=== PATIENT | female | born 1970 | race Caucasian/White ===

== ENCOUNTER → 2019-11-03 12:09 | Outpatient (BNVA) | payer OTHER, SELFPAY | PROVIDERS: Family Provider Nurse Practitioner; PCP Nurse Practitioner Family; Referring Provider Nurse Practitioner Family; Visit Provider Internal Medicine Rheumatology | DX: M19.90 Unspecified osteoarthritis, unspecified site (principal); Z11.59 Encounter for screening for other viral diseases; Z79.899 Other long term (current) drug therapy; Z11.1 Encounter for screening for respiratory tuberculosis; R79.82 Elevated C-reactive protein (CRP); T69.1XXA Chilblains, initial encounter; Z72.89 Other problems related to lifestyle; X31.XXXA Exposure to excessive natural cold, initial encounter | CPT/HCPCS: 36415; 82306; 84550; 85651; 86140; 86431; 86480; 86704; 86803; 87340; 99204 ==

== ENCOUNTER 2019-11-04 08:16 | Outpatient (CLI) | payer OTHER, SELFPAY ==
--- NOTE | 2019-11-04 08:29 | XR_ITS ---
WS: [id number] RIGHT HAND: 3 VIEW(S) TECHNIQUE: PA, oblique and lateral. HISTORY: inflammatory arthritis COMPARISON: None available. No acute fracture or dislocation. Very minimal narrowing of the interphalangeal joint spaces. No erosions or periarticular osteopenia. No ulnar styloid erosion. XR/XR hand RT min 3V* [id number] IMPRESSION: Minimal osteoarthritis.
--- NOTE | 2019-11-04 08:29 | XR_ITS ---
WS: [id number] RIGHT FOOT: 3 VIEW(S) TECHNIQUE: PA, oblique and lateral. HISTORY: Inflammatory arthritis COMPARISON: 01/06/2016 No acute fracture or dislocation. Mild narrowing of the first metatarsophalangeal joint. Mild deformity of the fourth metatarsal head i s probably from an old healed injury. No erosions. No soft tissue abnormality or bone destruction. XR/XR foot RT min 3V* [id number] IMPRESSION: Mild osteoarthritis. No erosions.
--- NOTE | 2019-11-04 08:29 | XR_ITS ---
WS: [id number] LEFT HAND: 3 VIEW(S) TECHNIQUE: PA, oblique and lateral. HISTORY: inflammatory arthritis COMPARISON: None available. No acute fracture or dislocation. Minimal interphalangeal joint space narrowing. No erosions at the metatarsal heads or ulnar styloid. Mild degenerative changes at the first carpometacarpal joint. XR/XR hand LT min 3V* [id number] IMPRESSION: Mild osteoarthritis.
--- NOTE | 2019-11-04 08:29 | XR_ITS ---
WS: [id number] LEFT FOOT: 3 VIEW(S) TECHNIQUE: PA, oblique and lateral. HISTORY: inflammatory arthritis COMPARISON: None available. No acute fracture or dislocation. Normal tarsal/metatarsal alignment. Mild narrowing of the first metatarsophalangeal joint. No erosions at the metatarsal heads. XR/XR foot LT min 3V* [id number] IMPRESSION: Mild osteoarthritis first metatarsophalangeal joint.
== END 2019-11-04 08:17 | disposition home or self-care (01) ==
PROVIDERS: Family Provider Nurse Practitioner; PCP Nurse Practitioner Family; Visit Provider Internal Medicine Rheumatology
DX: M19.042 Primary osteoarthritis, left hand (principal); M19.041 Primary osteoarthritis, right hand; M19.072 Primary osteoarthritis, left ankle and foot; M19.071 Primary osteoarthritis, right ankle and foot
CPT/HCPCS: 73130; 73630

== ENCOUNTER → 2019-11-21 14:03 | Outpatient (BNVA) | payer OTHER, SELFPAY | PROVIDERS: Family Provider Nurse Practitioner; PCP Nurse Practitioner Family; Visit Provider Internal Medicine Rheumatology | DX: M06.4 Inflammatory polyarthropathy (principal); Z79.899 Other long term (current) drug therapy; R05 Cough | CPT/HCPCS: 99214 ==

== ENCOUNTER 2019-11-22 08:33 | Outpatient (CLI) | payer OTHER, SELFPAY ==
--- NOTE | 2019-11-22 08:45 | XR_ITS ---
WS: [id number] PROCEDURE: XR chest 2V* [id number] CLINICAL INFORMATION: cough COMPARISON: January 06, 2016 FINDINGS: Heart: Normal cardiac silhouette. Lungs: Lungs are clear. No consolidation or pleural fluid. Bones: Mild thoracic curve convex right. XR/XR chest 2V* [id number] IMPRESSION: Normal chest
== END 2019-11-22 08:34 | disposition home or self-care (01) ==
LOC: RADWPI 08:35
PROVIDERS: Family Provider Nurse Practitioner; PCP Nurse Practitioner Family; Visit Provider Internal Medicine Rheumatology
DX: R05 Cough (principal)
CPT/HCPCS: 71046

== ENCOUNTER → 2020-02-17 09:07 | Outpatient (BNVA) | payer OTHER, SELFPAY | PROVIDERS: Family Provider Nurse Practitioner; PCP Nurse Practitioner Family; Visit Provider Internal Medicine Rheumatology | DX: R05 Cough (principal); Z79.899 Other long term (current) drug therapy | CPT/HCPCS: 36415; 80076; 82565; 85025; 85651; 86140 ==

== ENCOUNTER → 2020-02-22 08:51 | Outpatient (BNVA) | payer OTHER, SELFPAY | PROVIDERS: Family Provider Nurse Practitioner; PCP Nurse Practitioner Family; Visit Provider Internal Medicine Rheumatology | DX: M06.4 Inflammatory polyarthropathy (principal); Z79.899 Other long term (current) drug therapy; M19.90 Unspecified osteoarthritis, unspecified site; M25.50 Pain in unspecified joint; R79.82 Elevated C-reactive protein (CRP); T69.1XXD Chilblains, subsequent encounter; X31.XXXD Exposure to excessive natural cold, subsequent encounter | CPT/HCPCS: 99214 ==

== ENCOUNTER → 2020-04-23 09:03 | Outpatient (BNVA) | payer OTHER, SELFPAY | PROVIDERS: Family Provider Nurse Practitioner; PCP Nurse Practitioner Family | DX: Z79.899 Other long term (current) drug therapy (principal) | CPT/HCPCS: 36415; 82565; 85025; 85651; 86140 ==

== ENCOUNTER 2020-06-09 16:03 | Emergency (ER) | payer OTHER, SELFPAY ==
[2020-06-09 16:15] VITALS: BP 145/91; PULSE 98; RESP 18; TEMP 37.1; O2SAT 97
--- NOTE | 2020-06-09 18:44 | CTR_ITS ---
PROCEDURE INFORMATION: Exam: CT Abdomen And Pelvis With Contrast Exam date and time: 06/09/2020 6:54 PM Age: 49 years old Clinical indication: Abdominal pain; Localized; Right; Prior surgery; Surgery date: 6+ months; Surgery type: Gb; Patient HX: C/O R sided abd pain w diarrhea; Additional info: Ruq pain TECHNIQUE: Imaging protocol: Computed tomography of the abdomen and pelvis with intravenous contrast. Sagittal and coronal reformatted images were created and reviewed. Radiation optimization: All CT scans at this facility use at least one of these dose optimization techniques: automated exposure control; mA and/or kV adjustment per patient size (includes targeted exams where dose is matched to clinical indication); or iterative reconstruction. Contrast material: OMNI 300; Contrast volume: 95 ml; Contrast route: INTRAVENOUS (IV); COMPARISON: CR Hip 2-3v LEFT wwo Pelv* [id number] 06/07/2019 1:56 PM RADIATION DOSE METRICS: Total DLP (mGy-cm): 1528.81 FINDINGS: Lungs: Visualized lungs are clear. Pleural space: No pleural effusion. Heart: Visualized portions of the heart are unremarkable. Liver: Diffuse, mildly decreased attenuation in the liver. Findings are consistent with mild fatty infiltration. Gallbladder and bile ducts: Patient has had a previous cholecystectomy. No biliary ductal dilatation. Pancreas: The pancreas is unremarkable. No pancreatic ductal dilatation. Spleen: The spleen is unremarkable. Adrenals: The right and left adrenal glands are unremarkable. Kidneys and ureters: Subcentimeter hypodense focus in the right kidney that is too small to characterize, however likely represents a small cyst. The left kidney is unremarkable. The right and left ureters are unremarkable. Stomach and bowel: There is focal inflammation of the pericolonic fat adjacent to the proximal transverse colon. No colonic wall thickening. Ingested contents in the stomach. No acute abnormality in the small bowel. Appendix: The appendix is visualized and is unremarkable. No evidence of appendicitis. Intraperitoneal space: No free intraperitoneal air. No ascites. No loculated fluid collections to suggest an abscess. See also under stomach and bowel . Vasculature: No evidence for aortic aneurysm or aortic dissection. Hepatic veins, portal veins, splenic vein, and SMV are patent. Lymph nodes: No lymphadenopathy. Urinary bladder: Unremarkable as visualized. Reproductive: Patient has had a previous hysterectomy. The right ovary is not visualized, the patient may have had a previous right oophorectomy. Dominant follicle in the left ovary 2.5 x 2.8 cm (series 2, image 73). Bones/joints: Mild degenerative changes at both the right and left hips. [id number] multilevel degenerative changes in the visualized spine. Mild spinal canal stenosis at L4-L5 and L5-S1. Multilevel foraminal stenosis of varying severity in the lumbar spine. Soft tissues: The extra-abdominal soft tissues are unremarkable. Moderate-sized calcified enthesophyte at the left gluteal musculature tendon insertion. No acute abnormality in the extra-abdominal soft tissues. CT/CT abdomen pelvis w con* [id number] IMPRESSION: 1. Findings suggesting epiploic appendagitis versus a focal omental infarct adjacent to the proximal transverse colon. 2. Mild fatty infiltration of the liver. 3. Patient has had a previous hysterectomy. 4. The right ovary is not visualized, the patient may have had a previous right oophorectomy. Recommend clinical correlation. 5. Dominant follicle in the left ovary 2.5 x 2.8 cm. COMMENTS: Consistent with the [employer]'s Incidental Findings Committee white paper (J Am Azar Radiol 2018): Any incidental renal lesion less than 1 cm or classified as too small to characterize, or any incidental cystic renal lesion characterized as simple-appearing, is likely benign. No follow-up imaging is recommended for these lesions per consensus recommendations based on imaging criteria. Radiation Dose CTDIVOL = (mGy): DLP = 1528.81 (mGy-cm)
[2020-06-09 19:26] LABS: Add Urine Microscopic? NO
[2020-06-09 19:29] LABS: Bilirubin Urine Neg (Negative); Blood Urine Neg (Negative); Glucose Urine UA Norm (Normal); Ketones Urine Negative (Negative); Leukocyte Esterase Urine Negative (Negative); Nitrate Urine Negative (Negative); Protein Urine Neg (Negative); Specific Gravity, Urine 1.005 (1.005-1.030); Urine Appearance Clear (CLEAR); Urine Color Yellow (Yellow); Urobilinogen Urine Norm (Negative); pH Urine 6.5 (5-7)
[2020-06-09] MEDS: iohexol 300 mg/mL 100 mL Btl IV (19:35)
[2020-06-09 19:47] LABS: Basophils # 0.1 10^3/uL (0.0-0.1); Basophils % 0.5 %; Eosinophils # 0.2 10^3/uL (0.0-0.8); Eosinophils % 1.4 %; Hematocrit 45.6 % (37.0-47.0); Hemoglobin 15.6 g/dL (11.5-15.3); Lymphocytes # 3.4 10^3/uL (0.8-4.8); Lymphocytes % 24.3 %; Mean Corpuscular HGB Conc 34.2 g/dL (30.0-36.0); Mean Corpuscular Hemoglobin 29.4 pg (28.0-34.0); Mean Platelet Volume 9.6 fL (7.4-10.4); Monocytes % 7.4 %; Neutrophils # 9.21 10^3/uL (1.8-7.7); Nucleated Red Blood Cells % 0 %; Platelet Count 287 10^3/cmm (130-400); Red Cell Distribution Width 11.7 % (12.1-15.1)
[2020-06-09 20:14] LABS: Alanine Aminotransferase 46 U/L (0-33); Albumin Level 4.8 g/dL (3.5-5.2); Alkaline Phosphatase 61 IU/L (35-105); Aspartate Amino Transferase 20 U/L (0-32); Blood Urea Nitrogen 14 mg/dL (6-20); C Reactive Protein 8.4 mg/L (0.0-4.9); Calcium 9.4 mg/dL (8.5-10.5); Carbon Dioxide 31 mmol/L (22-29); Chloride 98 mmol/L (98-107); Globulin 2.3 g/dL (1.3-4.6); Glomerular Filtration Rate 75.6 mL/min (90-130); Glucose 109 mg/dL (65-115); Lactate (Lactic Acid level) 1.9 mmol/L (0.5-2.2); Lipase 68 U/L (13-60); Osmolality Calculated 291 mOsm/kg (285-295); Sodium 140 mmol/L (136-145); Total Bilirubin 0.3 mg/dL (0.15-1.2); Total Protein 7.1 g/dL (6.6-8.7)
--- NOTE | 2020-06-09 20:43 | W.ED.ABDPA2 ---
HPI - Abdominal Pain General: Chief Complaint: Abdominal Pain Stated Complaint: RIGHT SIDE PAIN Time Seen by Provider: 06/09/20 17:59 Source: patient and family Mode of arrival: ambulatory Limitations: no limitations History of Present Illness: HPI narrative: Abdominal pain started today when she woke up. Pain was located in the RUQ, and has progressively gotten worse as the day went on. She denies any fever, nausea or vomiting. She endorses some diarrhea. She denies any sick contacts. She has had her gallbladder removed many years ago. She still has her appendix. MD elicited complaint: abdominal pain Onset (ago): hour(s) Pain Consistency: constant Location: RUQ Severity: moderate Quality: sharp Radiation: none Migration to: no migration Exacerbating factors: eating Relieving factors: nothing Associated Symptoms: Reports change in bowel habits, diarrhea and fever(s); Denies anorexia, belching, bloating, change in stool character, chills, coffee ground emesis, constipation, GI cramping, dyspepsia, dysuria, excessive flatus, heartburn, hematochezia, hematuria, hematemesis, fecal incontinence, loose stools, melena, nausea, poor appetite, syncope and vomiting Review of Systems General: Reports: 10 or more systems reviewed and unremarkable except in HPI and below Const: Reports: fever(s); Denies: chills Eyes: Denies: change in vision or blurry vision ENMT: Denies: throat pain, enlarged tonsils, odynophagia, hoarseness, mouth pain or swelling of lips/tongue Card: Denies: syncope Resp: Denies: dyspnea, productive cough or non-productive cough GI: Reports: abdominal pain, diarrhea and change in bowel habits; Denies: nausea, vomiting, hematemesis, coffee ground emesis, heartburn, constipation, bloating, GI cramping, belching, excessive flatus, fecal incontinence, change in stool character, hematochezia or melena : Denies: dysuria or hematuria Musc: Denies: neck pain, back pain or extremity swelling Skin/Breast: Denies: rash, pruritus or erythema Neuro: Denies: headache(s), numbness in extremities or weakness in extremities Endo: Denies: polyuria, polydipsia or tired all the time PFSH ED PFSH: Medical History Adult hypothyroidism Anxiety Elevated C-reactive protein (CRP) High risk medication use Inflammatory arthritis Joint pain Perniosis Vitamin D deficiency Surgical History History of section 1992,1997,1998 History of cholecystectomy 2016 History of hysterectomy partial 2008 Family History Mother Cancer breast cancer uterine cancer Father Hypertension Denies family history of Rheumatoid arthritis Lupus Social History Smoking and tobacco status: never smoked Second hand smoke exposure: No Smoking risk assessment/counseling performed?: No Alcohol intake: never Desire information about alcohol rehabilitation?: No Counseling given: No Desire information about substance/drug rehabilitation?: No Counseling given: No Adopted: No Caregiver/support person: No Lives independently: Yes Household members: spouse Housing: House Marital status: service: No Current occupational status: employed History of recent travel: No Current gender identity: Female Physical Exam Const: COMMON NORMALS: no acute distress, average body habitus, patient oriented x3, no limitations, healthy appearing, alert and well nourished HENMT: COMMON NORMALS: normocephalic, atraumatic and moist oral mucous membranes HEAD & SCALP: normocephalic and atraumatic Neck/C-Spine: COMMON NORMALS: no meningeal signs and no JVD Resp: COMMON NORMALS: normal respiratory effort, No retractions, No use of accessory muscles, clear to auscultation bilaterally and percussion normal AUSCULTATION: clear to auscultation bilaterally PERCUSSION: percussion normal Cardio: COMMON NORMALS: no JVD, regular rate, regular rhythm, S1 normal heart sound present, S2 normal heart sound present, No gallops present (Cardio), No clicks present (Cardio), No murmurs present (Cardio), No rub (Cardio) and Peripheral pulses 2+ throughout RATE: regular rate RHYTHM: regular rhythm HEART SOUNDS: S1 normal heart sound present and S2 normal heart sound present PERIPHERAL PULSES: Peripheral pulses 2+ throughout GI: COMMON NORMALS: Normal to inspection, nondistended, normoactive bowel sounds present, Soft to palpation, No hepatosplenomegaly present, no masses and no bruits PALPATION: Yes Soft to palpation, Yes Tenderness to palpation present (GI) Details: RUQ, Yes Guarding due to palpation present (GI) in the RUQ and Yes No hepatosplenomegaly present Extremity: COMMON NORMALS: normal to inspection, full ROM, capillary refill normal, no calf tenderness and no pedal edema Neuro: COMMON NORMALS: patient oriented x3 SENSORIUM/ORIENTATION: Yes alert MENINGEAL SIGNS: Yes no meningeal signs Skin: COMMON NORMALS: no rashes or lesions noted, no wounds, turgor normal, no jaundice, no petechiae and no mottling GENERAL SKIN EXAM: no rashes or lesions noted and turgor normal Course Reevaluation(s): Reevaluation #1: Discussed her lab and imaging findings with her. Mild leukocytosis, CT scan findings suggestive of epiploic appendagitis. Explained to her that this is a self-limiting condition and management is just basically analgesics. She is advised to take ibuprofen as needed. She voiced understanding and is in agreement with the plan. She is given a printout from up-to-date on epiploic appendagitis Time: 20:40 Vital Signs: Vital signs: Vital Signs Temperature 98.7 F 06/09/20 16:15 Pulse Rate 79 06/09/20 20:57 Respiratory Rate 18 06/09/20 20:57 Blood Pressure 128/75 06/09/20 20:57 Pulse Oximetry 94 06/09/20 20:57 MDM - Abdominal Pain MDM Narrative: Medical decision making narrative: 49-year-old female patient with clinical evaluation consistent with epiploic appendagitis. She is discharged home on conservative measures. No complications noted Medical Records: Attestation: I reviewed the patient's medical records. Lab Data: Attestation: I reviewed the patient's lab results. Labs: Lab Results 06/09/20 06/09/20 06/09/20 Range/Units 19:07 19:24 19:24 WBC 14.0 H (4.0-10.0) 10^3/ uL RBC 5.30 (4.1-5.3) 10^6/u L Hgb 15.6 H (11.5-15.3) g/dL Hct 45.6 (37.0-47.0) % MCV 86.0 (81-99) fL MCH 29.4 (28.0-34.0) pg MCHC 34.2 (30.0-36.0) g/dL RDW 11.7 L (12.1-15.1) % Plt Count 287 (130-400) 10^3/c mm MPV 9.6 (7.4-10.4) fL Neut % (Auto) 66.0 % Lymph % (Auto) 24.3 % Whitman % (Auto) 7.4 % Eos % (Auto) 1.4 % Baso % (Auto) 0.5 % Neut # (Auto) 9.21 H (1.8-7.7) 10^3/u L Lymph # (Auto) 3.4 (0.8-4.8) 10^3/u L Whitman # (Auto) 1.0 H (0.2-0.9) 10^3/u L Eos # (Auto) 0.2 (0.0-0.8) 10^3/u L Baso # (Auto) 0.1 (0.0-0.1) 10^3/u L Nucleated RBC % (a uto) 0 % Nucleated RBCs # 0.0 /100WBC Sodium 140 (136-145) mmol/L Potassium 3.0 L (3.5-5.1) mmol/L Chloride 98 (98-107) mmol/L Carbon Dioxide 31 H (22-29) mmol/L Anion Gap 14.0 (5-19) BUN 14 (6-20) mg/dL Creatinine 0.8 (0.5-0.9) mg/dL GFR Calculation 75.6 L (90-130) mL/min Glucose 109 (65-115) mg/dL Calculated Osmolal ity 291 (285-295) mOsm/k g Lactate (0.5-2.2) mmol/L Calcium 9.4 (8.5-10.5) mg/dL Total Bilirubin 0.3 (0.15-1.2) mg/dL AST 20 (0-32) U/L ALT 46 H (0-33) U/L Alkaline Phosphata se 61 (35-105) IU/L C-Reactive Protein 8.4 H (0.0-4.9) mg/L Total Protein 7.1 (6.6-8.7) g/dL Albumin 4.8 (3.5-5.2) g/dL Globulin 2.3 (1.3-4.6) g/dL Lipase 68 H (13-60) U/L Urine Color Yellow (Yellow) Urine Appearance Clear (CLEAR) Urine pH 6.5 (5-7) Ur Specific Gravit y 1.005 (1.005-1.030) Urine Protein Neg (Negative) Urine Glucose (UA) Norm (Normal) Urine Ketones Negative (Negative) Urine Blood Neg (Negative) Urine Nitrate Negative (Negative) Urine Bilirubin Neg (Negative) Urine Urobilinogen Norm (Negative) mg/dL Ur Leukocyte Margarette ase Negative (Negative) 06/09/20 Range/Units 19:24 WBC (4.0-10.0) 10^3/ uL RBC (4.1-5.3) 10^6/u L Hgb (11.5-15.3) g/dL Hct (37.0-47.0) % MCV (81-99) fL MCH (28.0-34.0) pg MCHC (30.0-36.0) g/dL RDW (12.1-15.1) % Plt Count (130-400) 10^3/c mm MPV (7.4-10.4) fL Neut % (Auto) % Lymph % (Auto) % Whitman % (Auto) % Eos % (Auto) % Baso % (Auto) % Neut # (Auto) (1.8-7.7) 10^3/u L Lymph # (Auto) (0.8-4.8) 10^3/u L Whitman # (Auto) (0.2-0.9) 10^3/u L Eos # (Auto) (0.0-0.8) 10^3/u L Baso # (Auto) (0.0-0.1) 10^3/u L Nucleated RBC % (a uto) % Nucleated RBCs # /100WBC Sodium (136-145) mmol/L Potassium (3.5-5.1) mmol/L Chloride (98-107) mmol/L Carbon Dioxide (22-29) mmol/L Anion Gap (5-19) BUN (6-20) mg/dL Creatinine (0.5-0.9) mg/dL GFR Calculation (90-130) mL/min Glucose (65-115) mg/dL Calculated Osmolal ity (285-295) mOsm/k g Lactate 1.9 (0.5-2.2) mmol/L Calcium (8.5-10.5) mg/dL Total Bilirubin (0.15-1.2) mg/dL AST (0-32) U/L ALT (0-33) U/L Alkaline Phosphata se (35-105) IU/L C-Reactive Protein (0.0-4.9) mg/L Total Protein (6.6-8.7) g/dL Albumin (3.5-5.2) g/dL Globulin (1.3-4.6) g/dL Lipase (13-60) U/L Urine Color (Yellow) Urine Appearance (CLEAR) Urine pH (5-7) Ur Specific Gravit y (1.005-1.030) Urine Protein (Negative) Urine Glucose (UA) (Normal) Urine Ketones (Negative) Urine Blood (Negative) Urine Nitrate (Negative) Urine Bilirubin (Negative) Urine Urobilinogen (Negative) mg/dL Ur Leukocyte Margarette ase (Negative) Imaging Data ^: CT Abd/Pel: Radiologist's impression: [place] [address] CT Scan Report Signed Patient: Allison Draper AUnit #: [id number] : 1970Acct#:[id number] Age/Sex: 49 / FADM Date: 06/09/20 Loc: ERRoom/Bed: Attending Dr: Ordering Provider/Ordering MD: Saundra Maguire MD, [facility] [place] Date of Service: 06/09/20 Procedure(s): CT abdomen pelvis w con* [id number] Accession Number(s): [id number] Report Number: [id number] PROCEDURE INFORMATION: Exam: CT Abdomen And Pelvis With Contrast Exam date and time: 06/09/2020 6:54 PM Age: 49 years old Clinical indication: Abdominal pain; Localized; Right; Prior surgery; Surgery date: 6+ months; Surgery type: Gb; Patient HX: C/O R sided abd pain w diarrhea; Additional info: Ruq pain TECHNIQUE: Imaging protocol: Computed tomography of the abdomen and pelvis with intravenous contrast. Sagittal and coronal reformatted images were created and reviewed. Radiation optimization: All CT scans at this facility use at least one of these dose optimization techniques: automated exposure control; mA and/or kV adjustment per patient size (includes targeted exams where dose is matched to clinical indication); or iterative reconstruction. Contrast material: OMNI 300; Contrast volume: 95 ml; Contrast route: INTRAVENOUS (IV); COMPARISON: CR Hip 2-3v LEFT wwo Pelv* [id number] 06/07/2019 1:56 PM RADIATION DOSE METRICS: Total DLP (mGy-cm): 1528.81 FINDINGS: Lungs: Visualized lungs are clear. Pleural space: No pleural effusion. Heart: Visualized portions of the heart are unremarkable. Liver: Diffuse, mildly decreased attenuation in the liver. Findings are consistent with mild fatty infiltration. Gallbladder and bile ducts: Patient has had a previous cholecystectomy. No biliary ductal dilatation. Pancreas: The pancreas is unremarkable. No pancreatic ductal dilatation. Spleen: The spleen is unremarkable. Adrenals: The right and left adrenal glands are unremarkable. Kidneys and ureters: Subcentimeter hypodense focus in the right kidney that is too small to characterize, however likely represents a small cyst. The left kidney is unremarkable. The right and left ureters are unremarkable. Stomach and bowel: There is focal inflammation of the pericolonic fat adjacent to the proximal transverse colon. No colonic wall thickening. Ingested contents in the stomach. No acute abnormality in the small bowel. Appendix: The appendix is visualized and is unremarkable. No evidence of appendicitis. Intraperitoneal space: No free intraperitoneal air. No ascites. No loculated fluid collections to suggest an abscess. See also under stomach and bowel . Vasculature: No evidence for aortic aneurysm or aortic dissection. Hepatic veins, portal veins, splenic vein, and SMV are patent. Lymph nodes: No lymphadenopathy. Urinary bladder: Unremarkable as visualized. Reproductive: Patient has had a previous hysterectomy. The right ovary is not visualized, the patient may have had a previous right oophorectomy. Dominant follicle in the left ovary 2.5 x 2.8 cm (series 2, image 73). Bones/joints: Mild degenerative changes at both the right and left hips. [id number] multilevel degenerative changes in the visualized spine. Mild spinal canal stenosis at L4-L5 and L5-S1. Multilevel foraminal stenosis of varying severity in the lumbar spine. Soft tissues: The extra-abdominal soft tissues are unremarkable. Moderate-sized calcified enthesophyte at the left gluteal musculature tendon insertion. No acute abnormality in the extra-abdominal soft tissues. CT/CT abdomen pelvis w con* [id number] IMPRESSION: 1. Findings suggesting epiploic appendagitis versus a focal omental infarct adjacent to the proximal transverse colon. 2. Mild fatty infiltration of the liver. 3. Patient has had a previous hysterectomy. 4. The right ovary is not visualized, the patient may have had a previous right oophorectomy. Recommend clinical correlation. 5. Dominant follicle in the left ovary 2.5 x 2.8 cm. COMMENTS: Consistent with the [employer]'s Incidental Findings Committee white paper (J Am Azar Radiol 2018): Any incidental renal lesion less than 1 cm or classified as too small to characterize, or any incidental cystic renal lesion characterized as simple-appearing, is likely benign. No follow-up imaging is recommended for these lesions per consensus recommendations based on imaging criteria. Radiation Dose CTDIVOL = (mGy): DLP = 1528.81 (mGy-cm) Dictated By:Natasha Paige MD Signed By:Natasha Paige MDSigned Date/Time:06/09/202008 DD/ 07 Discharge Plan Discharge Patient Disposition: Home Clinical Impression: Epiploic appendagitis due to ischemia Condition: Stable Prescriptions: Continued thyroid (pork) [NEEDLE MOLDER Thyroid] 90 mg tablet 90 mg PO DAILY RF: 0 triamterene-hydrochlorothiazid 37.5-25 mg capsule 1 cap PO QAM RF: 0 hydroxychloroquine 200 mg tablet 200 mg PO BID Qty: 60 RF: 5 pantoprazole 40 mg tablet,delayed release (DR/EC) 40 mg PO DAILY Qty: 30 RF: 3 progesterone micronized 100 mg Insert 0.4 mg VAGINAL BID RF: 0 Discharge Orders: Discharge Order (Routine); Ordered 06/09/20 Ordered By: Saundra Maguire Referrals: Evelia Bui FNP [Primary Care Provider] - 1-3 days Discharge Diet: Usual diet Discharge Activity: Increase activity as tolerated Activity Restrictions/Additional Instructions: Return for any new or worsening symptoms. Follow-up with your primary care provider within 3 days. Take ibuprofen as needed for pain. Usually your symptoms should resolve on their own between 3 and 14 days. Discharge Date/Time: 06/09/20 20:58 Coding Level of Care Code ED Certified Dialysis Technician for Lydia Pichardo
[2020-06-09 20:57] VITALS: BP 128/75; PULSE 79; RESP 18; O2SAT 94
== END 2020-06-09 20:58 | disposition home or self-care (01) ==
PROVIDERS: Emergency Provider Family Medicine; PCP Nurse Practitioner Family
DX: K63.89 Other specified diseases of intestine (principal)
CPT/HCPCS: 12345; 74177; 80053; 81003; 83605; 83690; 85025; 86140; 99281; 99282; 99283; Q9967

== ENCOUNTER 2020-07-04 08:17 | Outpatient (CLI) | payer OTHER, SELFPAY ==
--- NOTE | 2020-07-04 08:22 | MM_ITS ---
WS: [id number] SCREENING DIGITAL MAMMOGRAM WITH CAD HISTORY: SCREENING COMPARISON: 12/06/2018 and 07/28/2017 Bilateral CC and MLO views submitted. Computer aided detection analyzed. Breast composition: There are scattered areas of fibroglandular density. Increasing asymmetry at 12:0 0 RIGHT breast. There is also some very slight architectural distortion on the CC projection in the c entral breast. MM/[place] [id number] IMPRESSION: BI-RADS: 0-Incomplete: Need additional imaging evaluation FOLLOW UP: Need Additional Imaging RIGHT breast: Spot compression views (CC and MLO). True ML. Ultrasound to follo w if abnormality persists.
== END 2020-07-04 08:18 | disposition home or self-care (01) ==
LOC: RADSHAW 08:20
PROVIDERS: PCP Nurse Practitioner Family; Visit Provider Nurse Practitioner Family
DX: Z12.31 Encounter for screening mammogram for malignant neoplasm of breast (principal); N64.89 Other specified disorders of breast
CPT/HCPCS: 77067

== ENCOUNTER 2020-07-23 08:22 | Outpatient (CLI) | payer OTHER, SELFPAY ==
--- NOTE | 2020-07-23 08:26 | MM_ITS ---
WS: [id number] I breast diagnostic digital mammogram, 07/23/2020 Clinical Data: RT BREAST ASYMMETRY Comparison: 07/04/2020, 12/06/2018, 07/28/2017, 07/14/2016, 07/12/2015, 07/10/2014, 07/07/2013, 012, 07/24/2011, 07/04/2011, 06/26/2010, 06/25/2009, 08/26/2007. Findings: Compression views of the right breast and the ML view of the right breast show that the asymmetric ti ssue is no longer present. There is no abnormal increase in density. No spiculated masses nor small c lustered calcifications are seen. There are no secondary signs of carcinoma. The breast parenchyma [facility] fibroglandular tissue MM/[place] [id number] Impression: 1. Negative right breast mammogram. 2. Recommend return to annual screening mammograms. BIRADS: 1-Negative FOLLOW UP: 1 Year Follow-up The CAD electric organ assembler and checker was used.
== END 2020-07-23 08:23 | disposition home or self-care (01) ==
LOC: RADSHAW 08:24
PROVIDERS: PCP Nurse Practitioner Family; Visit Provider Nurse Practitioner Family
DX: N64.89 Other specified disorders of breast (principal)
CPT/HCPCS: 77065

== ENCOUNTER 2020-09-28 13:41 | Outpatient (CLI) | payer OTHER, SELFPAY ==
[2020-09-28 13:52] LABS: D Dimer 0.25 ug/mIFEU (0-0.59)
== END 2020-09-28 13:42 | disposition home or self-care (01) ==
PROVIDERS: PCP Nurse Practitioner Family; Visit Provider Nurse Practitioner Family
DX: R06.02 Shortness of breath (principal)
CPT/HCPCS: 85378

== ENCOUNTER → 2021-04-17 14:06 | Outpatient (BNVA) | payer OTHER, SELFPAY | PROVIDERS: PCP Nurse Practitioner Family; Referring Provider Nurse Practitioner Family; Visit Provider Podiatrist Foot & Ankle Surgery | DX: S93.409A Sprain of unspecified ligament of unspecified ankle, initial encounter (principal); S82.51XA Displaced fracture of medial malleolus of right tibia, initial encounter for closed fracture; X58.XXXA Exposure to other specified factors, initial encounter | CPT/HCPCS: 73610 ==

== ENCOUNTER 2021-09-04 07:52 | Outpatient (CLI) | payer OTHER, SELFPAY ==
--- NOTE | 2021-09-04 08:03 | MR_ITS ---
WS: [id number] MRI LUMBAR SPINE WITH AND WITHOUT CONTRAST HISTORY: LUMBAR BACK PAIN W/radiculopathy; hx OF BACK SURGERY COMPARISON: 06/14/2018 TECHNIQUE: Sagittal and axial multisequence imaging is submitted. Sagittal and axial T1 fat sat seque nces post-MultiHance 20 cc IV. Mild curvature cervical and thoracic spine. Facet joint arthritis and vertebral body osteophytes cont acting the ventral thoracic cord at the T3-T8 levels. No high-grade stenosis seen on the survey image . Mild straightening of the normal lumbar lordosis. No fracture or marrow edema. Conus terminates normally at L1. L1-L2: Mild osteophytic ridging and facet arthritis. No stenosis. L2-L3: Mild osteophytic ridging and facet arthritis. No high-grade stenosis. L3-L4: Mild annular disc bulging and mild osteophytic ridging and facet arthritis. Very minimal progr ession of facet disease. There is a very tiny LEFT foraminal disc protrusion which does not appear to be contacting the nerve roots. There is no displacement of nerve roots. Very slight narrowing of the subarticular recesses and foramina. L4-L5: Mild osteophytic ridging and annular disc bulging. Posterior laminectomy defect is new since t he prior study. Partial debridement of the ligamentum flavum. There is mild encroachment and narrowin g of the thecal sac with clumping of the nerve roots. There is a small central disc protrusion which is similar to the prior study. Facet joint arthritis encroaching into the subarticular recesses. Incr eased fluid in the facet joints bilaterally. Mild central with bilateral foraminal and subarticular r ecess stenosis. L5-S1: Moderate-sized central disc protrusion with slight increase in size since the prior study. Dis c protrusion is slightly contacting the S1 nerve roots. Facet joint arthritis resulting in mild bilat eral foraminal stenosis and mild central stenosis. No discitis or osteomyelitis. Postoperative changes of gliosis and fibrosis in the laminectomy defect at L4-5. No abscess. There is mild enhancement around the facet joints at L4-5. MR/MR lumbar spine wo/w con [id number] IMPRESSION: 1. New since the prior examination is posterior central laminectomy defect at the L4-5 level. 2. Increase fluid or widening of the facet joints and increased enhancement in the facet joints at L4-5 from synovitis. These changes are new since 06/14/2018 . 3. Central disc protrusion slightly contacts the S1 nerve roots bilaterally at the L5-S1 level resulting in mild foraminal and central stenosis. Minimal prog ression since the prior study. 4. Mild central, bilateral foraminal and subarticular recess stenosis at L4-5. Minimal progression since the prior study.
[2021-09-04] MEDS: gadobenate dimeglumine 20 mL vial IV (08:39)
== END 2021-09-04 07:53 | disposition home or self-care (01) ==
LOC: RADSHAW 08:01
PROVIDERS: PCP Nurse Practitioner Family; Visit Provider Nurse Practitioner Family
DX: M54.16 Radiculopathy, lumbar region (principal); M48.061 Spinal stenosis, lumbar region without neurogenic claudication; M53.3 Sacrococcygeal disorders, not elsewhere classified
CPT/HCPCS: 72158; A9577

== ENCOUNTER 2022-11-18 12:02 | Outpatient (CLI) | payer OTHER, SELFPAY ==
--- NOTE | 2022-11-18 12:15 | US_ITS ---
WS: [id number] RENAL ULTRASOUND HISTORY: I10 - Essential (primary) hypertension COMPARISON: None available. TECHNIQUE: 2-D and color Doppler imaging of the kidney submitted. Right kidney: 11.1 cm x 4.8 cm x 4.3 cm. Normal echogenicity with no hydronephrosis or mass. Left kidney: 11.7 cm x 4.5 cm x 5.1 cm. Normal echogenicity with no hydronephrosis or mass. Aorta: Normal. Urinary Bladder: Normal distention. US/US renal BI* [id number] IMPRESSION: Normal renal ultrasound.
== END 2022-11-18 12:03 | disposition home or self-care (01) ==
LOC: RAD 12:09
PROVIDERS: PCP Nurse Practitioner Family; Visit Provider Nurse Practitioner
DX: I10 Essential (primary) hypertension (principal)
CPT/HCPCS: 76770

== ENCOUNTER → 2023-02-11 10:13 | Outpatient (BNVA) | payer OTHER, SELFPAY | PROVIDERS: PCP Nurse Practitioner Family; Visit Provider Nurse Practitioner | DX: I10 Essential (primary) hypertension (principal); E03.9 Hypothyroidism, unspecified; E66.9 Obesity, unspecified; Z79.890 Hormone replacement therapy | CPT/HCPCS: 80053; 82670; 84144; 84403; 84443 ==